=== PATIENT | male | born 1945 | race Caucasian/White ===

== ENCOUNTER → 2017-12-13 09:47 | Outpatient (CLI) | payer MEDICARE, OTHER, SELFPAY ==
--- NOTE | 2017-12-13 | DI.US.S_ITS ---
PROCEDURE: US ABD AORTA ANEURYSM SCREEN INDICATIONS: AAA SCREENING TECHNIQUE: Real time scanning was performed of the aorta and iliac arteries, with image documentation. COMPARISON: [facility], , CT ABDOMEN/PELVIS W/WO CONTRAST, 10/03/1999, 12:08. FINDINGS: Aorta: Proximal aortic diameter measures 1.8 cm. Mid-aorta measures 1.8 cm. Distal aortic diameter is 1.7 cm. Iliac arteries: Right common iliac artery measures 1.2 cm. Left common iliac artery measures 1.3 cm. IMPRESSION: No abdominal aortic or proximal common iliac artery aneurysm. Dictated by: Kolton MANSFIELD Interpreted: Carlene Thibodeaux MD on 12/13/2017 at 10:51 Approved by: Carlene Thibodeaux M.D. on 12/13/2017 at 16:54
== END ==
PROVIDERS: Family Provider Family Medicine; PCP Family Medicine; Visit Provider Family Medicine
DX: Z13.6 Encounter for screening for cardiovascular disorders (principal)
CPT/HCPCS: 76706

== ENCOUNTER → 2021-03-09 09:56 | Outpatient (CLI) | payer MEDICARE, OTHER, SELFPAY ==
[2021-03-09 11:59] LABS: COVID19 -Nasal RAPID Negative (Negative)
== END ==
PROVIDERS: Visit Provider Physician Assistant
DX: Z20.822 Contact with and (suspected) exposure to COVID-19 (principal); Z01.812 Encounter for preprocedural laboratory examination
CPT/HCPCS: 87635; C9803

== ENCOUNTER 2021-03-11 13:19 | Day surgery (SDC) | payer MEDICARE, OTHER, SELFPAY ==
[2021-03-11] VITALS (7 sets, daily range): BP systolic 111–139; BP diastolic 50–84; PULSE 59–76; RESP 15–18; TEMP 36.2–37.2; O2SAT 96–98; BMI 33.0
--- NOTE | 2021-03-11 | PATH_ITS ---
[facility] Accession Number: [id number] . 01 Material submitted: . sigmoid colon - SIGMOID COLON POLYP, 2 MM . 02 Diagnosis: Sigmoid Colon, Polyp 2 mm, Biopsy: Hyperplastic polyp. MRV 03/14/2021 1410 Local . 02 Electronically signed: . No Oneal MD, Pathologist NPI- [id number] . 01 Gross description: . SIGMOID COLON POLYP, 2 MM: Received in formalin are 2 fragment(s) of perez, soft tissue measuring 0.4 x 0.3 x 0.2 cm to 0.3 x 0.3 x 0.1 cm submitted entirely in 1 cassette(s) /SHIN 03/12/2021 0523 Local . 02 Pathologist provided ICD-10: K63.5 . 02 CPT . 056408 Performed at: 01 [facility] [address], [place], [place] [id number] MD Robert Cortes MD Phone: [phone] Performed at: 02 [facility] [address] [place], [place] [id number] MD No Oneal MD Phone: [phone]
--- NOTE | 2021-03-11 11:43 | PM.HP.1 ---
History of Present Illness History of Present Illness Date Patient Seen: 03/11/21 Chief complaint: SDC Narrative: 75 year old male comes in today for consideration of a screening colonoscopy. One previous colonoscopy many years ago, results unavailable at time of dictation. There have been no lower GI symptoms suggesting disease such as change in bowel habits, bleeding, abdominal pain or anemia. There's been no family history of colon cancer or colon polyps. Overall health issues have been stable, including no major cardiac events for at least 6 weeks. PCP: Dr. 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 Exam Narrative Exam Narrative: GENERAL: Alert and oriented, appearing stated age and in no acute distress. HEENT: Head normocephalic/atraumatic. LUNGS: Clear to ausculation bilaterally, no wheezes, rhonchi or rales. CV: Normal S1 and S2 with regular rate and rhythm, no audible murmurs, rubs or gallops. ABDOMEN: Soft, non-tender, non-distended, no organomegaly. Positive bowel sounds. EXTREMITIES: No clubbing, cyanosis, or edema. NEURO: Cranial nerves II through XII grossly intact, no focal deficits. PSYCH: Alert and oriented x 3. SKIN: No concerning lesions. Assessment & Plan Assessment & Plan narrative: 1. Screening for colon cancer Plan for colonoscopy. The nature and character of the procedure as well as anticipated results were discussed. The possibility of not completing the procedure was also discussed. Possible complications including aspiration pneumonia, bleeding, perforation and reaction to medications either for sedation or preparation and missed lesions were discussed. Questions were answered and proceeding to the colonoscopy was elected. Informed consent signed. I sincerely appreciate the referral allowing me to participate in this patient's care. Please contact me with any questions or concerns.
--- NOTE | 2021-03-11 11:51 | PM.OP.ENDO ---
Operative Date/Time/Diagnoses Date of procedure: 03/11/21 Procedure Notes SCOAP/Timeout: 2:54 p.m. Procedure in detail: ENDOSCOPIST: Yanelis Saavedra MD Sedation RN: Cara Lilly RN Sedation start time: 2:55 p.m. Sedation end time: 3:17 p.m. PROCEDURE: Colonoscopy with biopsy INDICATIONS: 1. Screening for colon cancer MEDICATION: Levsin 0.125 mg sublingual, incremental doses of Versed and fentanyl until appropriate level sedation achieved. ASA CLASS: 2 CECAL WITHDRAWAL TIME: 8 minutes COMPLICATIONS: None. EXTENT OF PROCEDURE: Cecum. QUALITY OF PREP: Good with portions of liquid stool. PROCEDURE: Prior to insertion of the colonoscope, a digital rectal examination was accomplished with circumferential palpation of the distal rectal mucosa without significant findings being noted. The high-definition colonoscope was passed into the rectum in the usual fashion and advanced over to the cecum without difficulty. The ileocecal valve, appendiceal stoma, and medial wall all could be inspected and no abnormalities were seen. ASCENDING COLON: As the colonoscope was withdrawn, care was taken to expose and inspect the haustral folds and no abnormalities were seen. HEPATIC FLEXURE: Normal, no polyps, diverticula or other abnormalities. TRANSVERSE COLON: Normal, no polyps, diverticula or other abnormalities. DESCENDING COLON: Minor diverticulosis, otherwise normal, no polyps, or other abnormalities. SIGMOID COLON: Minor diverticulosis, otherwise normal, no polyps, or other abnormalities. RECTUM: Normal. J maneuver was produced. There was no significant perianal disease. The J maneuver was broken. The remainder of the rectum was inspected and there was mild external hemorrhoid disease. The scope was withdrawn. IMPRESSION: 1. Normal colonoscopy 2. Left-sided diverticulosis, mild 3. External hemorrhoid disease, mild PLAN: 1. Secondary to age, patient does not require any additional screening colonoscopies. The possibility of a missed lesion including a malignancy has been discussed with the patient previously. Potential alarm symptoms have been discussed and should be reported immediately.
[2021-03-11] MEDS: LACTATED RINGERS 1,000 ML 200 ML IV (14:36)
[2021-03-11] MEDS: HYOSCYAMINE 0.125 MG TABLET PO (14:39)
[2021-03-11] MEDS: MIDAZOLAM 2 MG/2 ML VIAL IV (14:58)
[2021-03-11] MEDS: fentaNYL 250 MCG/5 ML INJ IV (14:59)
== END 2021-03-11 16:10 | disposition home or self-care (01) ==
PROVIDERS: Referring Provider Student in an Organized Health Care Education/Training Program; Visit Provider Student in an Organized Health Care Education/Training Program
PROC: 0DJD8ZZ Inspection of Lower Intestinal Tract, Via Natural or Artificial Opening Endoscopic (ICD-10-PCS; CPT 45378; principal; 2021-03-11 14:30)
DX: Z12.11 Encounter for screening for malignant neoplasm of colon (principal); K57.30 Diverticulosis of large intestine without perforation or abscess without bleeding; K64.4 Residual hemorrhoidal skin tags; K63.5 Polyp of colon; G47.33 Obstructive sleep apnea (adult) (pediatric); Z86.16 Personal history of COVID-19; E66.9 Obesity, unspecified
CPT/HCPCS: 45380; J2250; J3010